=== PATIENT | male | born 1980 | race Caucasian/White ===

== ENCOUNTER 2020-07-15 13:25 | Emergency (ER) | payer MEDICAID ==
[~2020-07-15] VITALS: Ht 198.1 cm; Wt 74.1 kg
--- NOTE | 2020-07-15 13:35 | NUR ---
Received pt straight back from EMS. Pt A/O x Addendum: 07/15/20 at 1336 by BNELSON A/O x 4, in no apparent medical distress, but relays depression with vague S.I. Pt cooperative with admission process. Pt on 4690 from [facility] for DTS.
[2020-07-15] MEDS ORDERED: NO HOME MEDS (14:22)
[2020-07-15 14:31] LABS: BASOPHILS # (AUTO) 0.1 X10'3 (0-0.2); BASOPHILS % (AUTO) 0.9 % (0-1); EOSINOPHILS # (AUTO) 0.1 X10'3 (0-0.9); EOSINOPHILS % (AUTO) 0.8 % (0-6); HEMATOCRIT 47.8 % (42.0-52.0); HEMOGLOBIN 16.1 g/dl (14.0-17.9); LYMPHOCYTES # (AUTO) 1.7 X10'3 (1.1-4.8); LYMPHOCYTES % (AUTO) 24.8 % (21-51); MEAN CORPUSCULAR HEMOGLOBIN 31.4 PG (27.0-31.0); MEAN CORPUSCULAR HGB CONC 33.7 g/dL (33.0-36.5); MEAN CORPUSCULAR VOLUME 93.2 FL (78-98); MEAN PLATELET VOLUME 9.6 FL (7.4-10.4); MONOCYTES # (AUTO) 0.7 X10'3 (0-0.9); MONOCYTES % (AUTO) 9.8 % (2-12); NEUTROPHILS # (AUTO) 4.3 X10'3 (1.8-7.7); NEUTROPHILS % (AUTO) 63.7 % (42-75); PLATELET COUNT 239 X10'3 (140-440); RED BLOOD COUNT 5.13 X10'6 (4.70-6.10); RED CELL DISTRIBUTION WIDTH 12.4 % (11.5-14.5); WHITE BLOOD COUNT 6.8 X10'3 (4.5-11.0)
[2020-07-15 14:40] LABS: ALANINE AMINOTRANSFERASE 22 U/L (12-78); ALBUMIN 4.6 G/DL (3.4-5.0); ALBUMIN/GLOBULIN RATIO 1.3 (1.1-1.5); ALKALINE PHOSPHATASE 53 IU/L (46-116); ANION GAP 10 (8-16); ASPARTATE AMINO TRANSFERASE 16 U/L (10-37); BILIRUBIN,TOTAL 0.7 MG/DL (0.1-1.0); BLOOD UREA NITROGEN 23 MG/DL (7-18); BUN/CREATININE RATIO 26.7 (5.4-32.0); CALCIUM 9.3 MG/DL (8.5-10.1); CHLORIDE 102 MMOL/L (99-107); CREATININE 0.86 MG/DL (0.60-1.10); GLUCOSE 90 MG/DL (70-104); SODIUM 142 MMOL/L (135-145); TOTAL CARBON DIOXIDE 29.7 MMOL/L (24-32); TOTAL PROTEIN 8.1 G/DL (6.4-8.2); eGFR > 90 ML/MIN
[2020-07-15 14:50] LABS: ETHANOL < 0.010 GM/DL (0.0-0.010)
--- NOTE | 2020-07-15 15:00 | NUR ---
Pt ate some lunch, was cooperative with admission assessment, and now is sleeping without distress.
[2020-07-15 15:38] LABS: CLARITY,URINE CLEAR (Clear); COLOR,URINE YELLOW (Yellow); GLUCOSE, URINE NEGATIVE (Neg); KETONES,URINE TRACE mg/dl (Neg); LEUKOCYTE ESTERASE ,URINE NEGATIVE (Neg); NITRITES, URINE NEGATIVE (Neg); OCCULT BLOOD,URINE NEGATIVE (Neg); PH,URINE 7.5 (4.8-8.0); PROTEIN,URINE NEGATIVE (Neg); UROBILINOGEN,URINE 0.2 E.U/dL (0.2-1.0)
[2020-07-15 15:44] LABS: URINE AMPHETAMINE SCREEN NEGATIVE (Neg); URINE BARBITUATE SCREEN NEGATIVE (Neg); URINE BENZODIAZEPINES SCREEN NEGATIVE (Neg); URINE CANNABINOID SCREEN POSITIVE (Neg); URINE COCAINE SCREEN NEGATIVE (Neg); URINE METHADONE SCREEN NEGATIVE (Neg); URINE OPIATE SCREEN NEGATIVE (Neg); URINE PHENCYCLIDINE SCREEN NEGATIVE (Neg)
[2020-07-15 15:46] LABS: UA COLLECTION TYPE CLN CATCH MIDSTREAM
--- NOTE | 2020-07-15 16:59 | NUR ---
Pt lying in bed without complaints. Pt cooperative with COVID test which is negative and u-tox is positive for cannibis. Packet sent to [facility].
--- NOTE | 2020-07-15 16:59 | NUR ---
PACKET FAXED TO [facility] – [place], [place]
--- NOTE | 2020-07-15 17:00 | NUR ---
Pt resting quietly in bed without complaints.
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
--- NOTE | 2020-07-15 21:13 | NUR ---
Patient sleeps quietly, mid fowlers position. No distress.
--- NOTE | 2020-07-15 22:00 | NUR ---
Patient is quietly sleeping on his right side. No distress noted.
--- NOTE | 2020-07-15 23:17 | NUR ---
Patient sleeping quietly. In view from nurses station.
--- NOTE | 2020-07-16 02:12 | NUR ---
Patient continues to sleep well. No distress.
--- NOTE | 2020-07-16 04:33 | NUR ---
Patient sleeping on his right side, bed in low fowlers position.
[2020-07-16 05:51] VITALS: BP 111/61
--- NOTE | 2020-07-16 06:48 | NUR ---
Patient sleeping supine. Respirations equal and nonlabored. Continue to monitor.
--- NOTE | 2020-07-16 08:22 | NUR ---
Patient sitting up and eating. No distress observed. Continue to monitor.
== END 2020-07-16 10:58 ==
LOC: ER 13:25
DX: R45.851 Suicidal ideations (principal); Z20.822 Contact with and (suspected) exposure to COVID-19; R44.0 Auditory hallucinations; F32.9 Major depressive disorder, single episode, unspecified; F41.9 Anxiety disorder, unspecified; F12.90 Cannabis use, unspecified, uncomplicated; Z72.89 Other problems related to lifestyle; Z56.0 Unemployment, unspecified
CPT/HCPCS: 36415; 80053; 80305; 80320; 81003; 84443; 85025; 87635; 99285; C9803

== ENCOUNTER 2021-10-10 01:49 | Emergency (ER) | payer MEDICAID ==
[~2021-10-10] VITALS: Ht 185.4 cm; Wt 70.5 kg
[~2021-10-10 01:49] MED LIST: NO HOME MEDS
[2021-10-10 01:51] VITALS: BP 142/84
[2021-10-10] MEDS ORDERED: CEPH-585 PO (03:43)
== END 2021-10-10 04:10 | disposition home or self-care (01) ==
LOC: ER 01:49
DX: S60.132A Contusion of left middle finger with damage to nail, initial encounter (principal); X50.0XXA Overexertion from strenuous movement or load, initial encounter; Y93.89 Activity, other specified; Y92.89 Other specified places as the place of occurrence of the external cause; Y99.8 Other external cause status
CPT/HCPCS: 73140; 99283